=== PATIENT | male | born 1965 | race Caucasian/White ===

== ENCOUNTER → 2017-05-06 08:14 | Outpatient (CLI) | payer BC, SELFPAY ==
[2017-05-06 10:21] LABS: AST(SGOT) 23 U/L (15-37); Alanine Aminotransfer ALT/SGPT 46 U/L (16-61); Albumin, Serum 4.1 g/dL (3.2-5.0); Alkaline Phosphatase 87 U/L (45-117); Bilirubin, Direct 0.16 mg/dL (0.00-0.30); Cholesterol 116 mg/dL (200); Globulin 3.5 g/dL (2.2-4.2); High Density Lipoprotein 36 mg/dL; PSA,Total - Annual Screen 0.66 ng/mL (0.00-4.00); Protein, Total 7.6 g/dL (6.4-8.2); Triglycerides 137 mg/dL; Very Low Density Lipoprotein 27 mg/dL (5-40)
== END ==
PROVIDERS: Family Provider Physician Assistant; PCP Physician Assistant; Visit Provider Internal Medicine Cardiovascular Disease
DX: Z13.1 Encounter for screening for diabetes mellitus (principal); E78.5 Hyperlipidemia, unspecified; Z12.5 Encounter for screening for malignant neoplasm of prostate; Z79.899 Other long term (current) drug therapy
CPT/HCPCS: 36415; 80061; 80076; 84153; G0103

== ENCOUNTER → 2017-12-29 08:09 | Outpatient (CLI) | payer BC, SELFPAY ==
[2017-12-29 09:29] LABS: ALB/GLOB Ratio 1.1 RATIO (0.9-2.4); AST(SGOT) 34 U/L (15-37); Alanine Aminotransfer ALT/SGPT 61 U/L (16-61); Alkaline Phosphatase 91 U/L (45-117); Anion Gap 8 (5-15); BUN 13 mg/dL (7-18); BUN/Creat Ratio 12.6 RATIO (10-20); Calcium,Total 8.8 mg/dL (8.5-10.1); Chloride 105 mmol/L (98-107); Cholesterol 108 mg/dL (200); Creatinine, Serum 1.03 mg/dL (0.70-1.30); EST Glomerular Filtration Rate 80 mL/min (>60); Est Glom Filt Rate - Afr Amer 97 mL/min (>60); Globulin 3.8 g/dL (2.2-4.2); Glucose 104 mg/dL (74-106); High Density Lipoprotein 35 mg/dL; Protein, Total 7.8 g/dL (6.4-8.2); Sodium Level 139 mmol/L (136-145); Triglycerides 139 mg/dL; Very Low Density Lipoprotein 28 mg/dL (5-40)
== END ==
PROVIDERS: Family Provider Physician Assistant; PCP Physician Assistant; Referring Provider Internal Medicine Cardiovascular Disease; Visit Provider Internal Medicine Cardiovascular Disease
DX: Z13.1 Encounter for screening for diabetes mellitus (principal)
CPT/HCPCS: 36415; 80053; 80061; 84156

== ENCOUNTER → 2018-01-19 06:06 | Outpatient (CLI) | payer BC, SELFPAY ==
--- NOTE | 2018-01-19 10:54 | STRESSREP ---
Stress Test Report Exercise myocardial perfusion stress test. 52-year-old man with a history of previous coronary stenting in the right coronary artery. Stress protocol: Resting EKG demonstrates normal sinus rhythm with a rate of 66 bpm. His resting blood pressure 130/90 mmHg. He has an incomplete right bundle branch block. The patient exercised according to regular Joshua protocol for total duration of 9 minutes the maximum heart rate attained was 150 bpm which was 90% of maximum predicted heart rate the maximum workload was 10.1 metabolic equivalents. At rest there were no ST or T wave changes noted suggest ischemia at peak exercise nonspecific ST-T wave changes were noted we did not have any evidence of ischemia no clinical angina was noted the test was terminated due to leg fatigue. The resting blood pressure was 130/90 with a peak blood pressure 190/90 mmHg. Myocardial perfusion protocol. 14.4 mCi of technetium 99m sestamibi was injected at rest. The patient exercised according to regular Joshua protocol for total duration of 9 minutes at peak exercise 44.3 mCi of technetium 99m sestamibi was injected stress images were obtained stress and rest images were reconstructed and compared in the short axis vertical long horizontal long axis. Gated images were also obtained Perfusion SPECT analysis: Review of the stress images demonstrate normal uptake of tracer noted in all areas of myocardium. The resting images similarly demonstrate normal uptake of tracer noted in all areas of myocardium. No areas of reversibility are noted suggest ischemia no previous infarct is noted. Gated SPECT analysis: The gated ejection fraction is 66%. Conclusion: Normal exercise myocardial perfusion stress test at a high workload. Preserved ejection fraction.
== END ==
LOC: CVS 06:09
PROVIDERS: Family Provider Physician Assistant; PCP Physician Assistant; Referring Provider Internal Medicine Cardiovascular Disease; Visit Provider Internal Medicine Cardiovascular Disease
DX: I25.10 Atherosclerotic heart disease of native coronary artery without angina pectoris (principal); Z95.5 Presence of coronary angioplasty implant and graft
CPT/HCPCS: 78452; 93017; A9500; A4216

== ENCOUNTER → 2019-01-12 10:00 | Outpatient (CLI) | payer BC, SELFPAY ==
[2018-01-05 09:26] VITALS: BMI 27.8
[2019-01-12 11:42] LABS: AST(SGOT) 19 U/L (15-37); Alanine Aminotransfer ALT/SGPT 40 U/L (16-61); Albumin, Serum 4.3 g/dL (3.2-5.0); Alkaline Phosphatase 105 U/L (45-117); Bilirubin, Direct 0.14 mg/dL (0.00-0.30); Cholesterol 126 mg/dL (200); Globulin 3.7 g/dL (2.2-4.2); High Density Lipoprotein 40 mg/dL; Triglycerides 142 mg/dL; Very Low Density Lipoprotein 28 mg/dL (5-40)
[2019-01-12 11:44] LABS: Anion Gap 6 (5-15); BUN 14 mg/dL (7-18); BUN/Creat Ratio 13.6 RATIO (10-20); Calcium,Total 9.3 mg/dL (8.5-10.1); Chloride 106 mmol/L (98-107); Creatinine, Serum 1.03 mg/dL (0.70-1.30); EST Glomerular Filtration Rate 79 mL/min (>60); Est Glom Filt Rate - Afr Amer 96 mL/min (>60); Glucose 102 mg/dL (74-106); PSA,Total - Annual Screen 0.72 ng/mL (0.00-4.00); Potassium 4.2 mmol/L (3.5-5.1); Sodium Level 141 mmol/L (136-145)
== END ==
PROVIDERS: Family Provider Physician Assistant; PCP Physician Assistant; Referring Provider Internal Medicine Cardiovascular Disease; Visit Provider Internal Medicine Cardiovascular Disease
DX: I10 Essential (primary) hypertension (principal); Z12.5 Encounter for screening for malignant neoplasm of prostate; E78.00 Pure hypercholesterolemia, unspecified; F17.200 Nicotine dependence, unspecified, uncomplicated; Z95.5 Presence of coronary angioplasty implant and graft; I73.9 Peripheral vascular disease, unspecified; E78.5 Hyperlipidemia, unspecified; I25.10 Atherosclerotic heart disease of native coronary artery without angina pectoris; I45.2 Bifascicular block
CPT/HCPCS: 36415; 80048; 80061; 80076; 84153; G0103

== ENCOUNTER → 2020-01-10 08:04 | Outpatient (CLI) | payer BC, SELFPAY ==
[2019-01-18 10:17] VITALS: BMI 27.6
[2020-01-10 10:02] LABS: ALB/GLOB Ratio 0.9 RATIO (0.9-2.4); AST(SGOT) 14 U/L (15-37); Alanine Aminotransfer ALT/SGPT 32 U/L (16-61); Albumin, Serum 3.8 g/dL (3.2-5.0); Alkaline Phosphatase 93 U/L (45-117); Anion Gap 2 (5-15); BUN 13 mg/dL (7-18); BUN/Creat Ratio 12.5 RATIO (10-20); Bilirubin, Direct 0.26 mg/dL (0.00-0.30); Calcium,Total 9.4 mg/dL (8.5-10.1); Chloride 106 mmol/L (98-107); Cholesterol 111 mg/dL (200); Creatinine, Serum 1.04 mg/dL (0.70-1.30); EST Glomerular Filtration Rate 78 mL/min (>60); Est Glom Filt Rate - Afr Amer 95 mL/min (>60); Globulin 4.2 g/dL (2.2-4.2); Glucose 104 mg/dL (74-106); High Density Lipoprotein 47 mg/dL; PSA,Total - Annual Screen 0.66 ng/mL (0.00-4.00); Potassium 4.2 mmol/L (3.5-5.1); Sodium Level 138 mmol/L (136-145); Triglycerides 63 mg/dL; Very Low Density Lipoprotein 13 mg/dL (5-40)
== END ==
LOC: LAB 08:06
PROVIDERS: PCP Physician Assistant; Referring Provider Physician Assistant; Visit Provider Physician Assistant
DX: E78.5 Hyperlipidemia, unspecified (principal); Z12.5 Encounter for screening for malignant neoplasm of prostate
CPT/HCPCS: 36415; 80053; 80061; 82248; 84153; G0103

== ENCOUNTER → 2021-10-12 | Outpatient (CLI) | payer BC, SELFPAY ==
--- NOTE | 2021-10-12 14:04 | CT_ITS ---
STUDY: LOW DOSE CT LUNG CANCER SCREENING REASON FOR EXAM: Male, 56 years old. Lung cancer screening -- and gt;30 pk yr hx; asymptomatic; current smoker RADIATION DOSAGE (If Supplied By Facility): CTDIvol = ( 2.39 ) mGy, DLP = ( 85.18 ) mGycm TECHNIQUE: No contrast was administered. Low dose technique was utilized (average mAS-38 and kVp 120). 1.25 mm axial source images with a slice interval of 1.25-mm were reconstructed in lung windows. 2.5 mm axial source images with a slice interval of 2.5-mm were reconstructed in lung windows. 5.0 mm axial source images with a slice interval of 5.0-mm were reconstructed in soft tissue windows. COMPARISON: Chest x-ray obtained on 03/27/2016. NODULES: Total lung nodules (excluding granulomas): 0 Emphysema: Subtle peripheral emphysematous bulla visualized in the upper lung abraham bilaterally. Prominence of the bronchovascular and interstitial lung markings is visualized. No evidence of focal lung infiltrates or consolidations. Endobronchial lesion: No evidence of endobronchial lesions is seen. Bronchial wall thickening is seen, no evidence of bronchiectatic changes is seen. Aorta: Mild calcification visualized in the aortic arch, no evidence of aneurysmal dilatation or arterial dissection is seen. CORONARY ARTERIES: Coronary artery calcification Prominent atherosclerotic calcifications visualized in the left main coronary artery. Coronary artery calcifications visualized involving more than one third and less than two thirds of the left anterior descending. Calcifications visualized involving more than one third and less than two thirds of the left circumflex coronary artery.. Calcifications with suggestion of a stent visualized in the right coronary artery. Heart: Heart is unremarkable in size, no evidence of pericardial effusion. Pulmonary artery: Pulmonary arteries demonstrate unremarkable contours in size. Mediastinal nodes: Scattered lymph nodes, largest of which are precarinal lymph nodes measuring 1.7 x 1.2 cm seen on axial series 2 image 121. Other chest and abdominal findings: No evidence of pleural effusion or pneumothorax. CT/Low Dose CT Lung Screening IMPRESSION: No evidence of parenchymal lung nodules. IMPORTANT NOTES FOR USE: ACR Lung-RADS Version 1.1 Assessment Categories Release Date: 2018 Category: Coded 0-4 bases on nodule(s) with highest degree of suspicion. Negative screen is defined as categories 1 and 2; a positive screen is defined as categories 3 and 4. Category 3 and 4A nodules that are unchanged on interval CT should be coded as category 2, and individuals returned to screening in 12 months. Category 4X: Category 3 or 4 nodules with additional imaging findings that increase the suspicion of lung cancer, such as spiculation, GGN that doubles in size in 1 year, enlarged lymph notes, etc. Category Modifiers: S (significant finding unrelated to lung cancer) Electronically Signed: Cyrus Alejandra MD at 14:39 EDT Reading Location ID and State: [facility] / [place] Tel , Service support ,
== END | disposition home or self-care (01) ==
PROVIDERS: PCP Physician Assistant; Referring Provider Nurse Practitioner Family; Visit Provider Nurse Practitioner Family
DX: Z12.2 Encounter for screening for malignant neoplasm of respiratory organs (principal); Z87.891 Personal history of nicotine dependence
CPT/HCPCS: 71271

== ENCOUNTER → 2023-04-11 | Outpatient (CLI) | payer BC, SELFPAY ==
--- NOTE | 2023-04-11 12:50 | CT_ITS ---
STUDY: LOW DOSE CT LUNG CANCER SCREENING REASON FOR EXAM: Male, 58 years old. Lung cancer screening -- and gt;20 pk yr hx;current smoker;asymptomatic RADIATION DOSAGE (If Supplied By Facility): CTDIvol = ( 4.02 ) mGy, DLP = ( 156.02 ) mGycm TECHNIQUE: No contrast was administered. Low dose technique was utilized (average mAS-38 and kVp 120). 1.25 mm axial source images with a slice interval of 1.25-mm were reconstructed in lung windows. 2.5 mm axial source images with a slice interval of 2.5-mm were reconstructed in lung windows. 5.0 mm axial source images with a slice interval of 5.0-mm were reconstructed in soft tissue windows. COMPARISON: Comparison is made with prior study dated October 12, 2021. NODULES: No suspicious nodules are seen. Emphysema: Hyperinflation. Emphysematous changes with bullous formation more prominent in the upper lobes. Endobronchial lesion: None Aorta: Mild atherosclerotic calcification of the aortic arch. The root of the ascending thoracic aorta measures upper limits of normal. CORONARY ARTERIES: Coronary artery calcification is seen. Heart: Unremarkable Pulmonary artery: Unremarkable Mediastinal nodes: Small benign-appearing mediastinal lymph nodes. Other chest and abdominal findings: CT/Low Dose CT Lung Screening IMPRESSION: Lung-RADS category 2 - Continue annual screening with LDCT in 12 months. IMPORTANT NOTES FOR USE: ACR Lung-RADS Version 1.1 Assessment Categories Release Date: 2018 Category: Coded 0-4 bases on nodule(s) with highest degree of suspicion. Negative screen is defined as categories 1 and 2; a positive screen is defined as categories 3 and 4. Category 3 and 4A nodules that are unchanged on interval CT should be coded as category 2, and individuals returned to screening in 12 months. Category 4X: Category 3 or 4 nodules with additional imaging findings that increase the suspicion of lung cancer, such as spiculation, GGN that doubles in size in 1 year, enlarged lymph notes, etc. Category Modifiers: S (significant finding unrelated to lung cancer) Electronically Signed: Ej Bajwa MD at 13:33 EST ,
== END | disposition home or self-care (01) ==
LOC: CT 12:48
PROVIDERS: PCP Physician Assistant; Referring Provider Nurse Practitioner Family; Visit Provider Nurse Practitioner Family
DX: Z12.2 Encounter for screening for malignant neoplasm of respiratory organs (principal); Z87.891 Personal history of nicotine dependence
CPT/HCPCS: 71271

== ENCOUNTER → 2023-04-21 | Outpatient (CLI) | payer BC, SELFPAY ==
--- OUTSIDE RECORDS SUMMARY | 2023-04-21 06:12 | XMS RPT_ITS | CCD ---
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 09-27-2013 End: 09-27-2013 Patient encounter procedure Dylan Mendozaer PA-C Work Phone: [facility] Patient encounter status [facility]japati [facility].; [facility], [facility]. Patient encounter status Steve Mercado [facility].; [facility]. Patient encounter status Cassandra cerda SR COMMUNITY MANAGER [facility].; [facility] Patient encounter status Kathy Nayak SR COMMUNITY MANAGER [facility].; [facility] Preprocedural examin ation done Dylan Bangura PA-C Work Phone: [facility]; [facility] Procedures Date Procedure Procedure Detail Performing Clinician Start: 02-10-2023 End: 02-10-2023 Depression screening Dylan Garcia Work Phone: Start: 02-10-2023 End: 02-10-2023 Scr dep neg, no plan reqd Dylan travis PA-C Work Phone: Start: 01-27-2023 End: 01-27-2023 Lab findings surveillance Steve REDD Plan of Treatment Date Care Activity Detail Author Start: 08-11-2023 Patient encounter procedure Medical; EXTENDED RTN - 6 mo rtn [facility] Start: 11-Aug-2023 8:00 LORI Bangura [facility]ointment [facility] Start: 09-28-2020 Radiologic exam ches t 2 views CHEST XRAY, PA & LATERAL ([id number]) Start: 28-Sep-2020 Intent [facility].; [facility] Start: 05-18-2017 End: 05-18-2017 Appointment Appointment [facility] Work Phone: Start: 05-08-2017 End: 11-11-2016 *Hepatic Function Panel *Hepatic Function Panel [facility] Work Phone: Start: 05-08-2017 End: 11-11-2016 Lipid 1996 panel *Lipid Profile CC PCP [facility] Work Phone: Start: 05-08-2017 End: 11-11-2016 *Hepatic Function Panel *Hepatic Function Panel [facility] Work Phone: Start: 05-08-2017 End: 11-11-2016 Lipid panel [AGGREGATE] *Lipid Profile CC PCP [facility] Work Phone: Start: 11-17-2016 End: 11-17-2016 Appointment Appointment [facility] Work Phone: Start: 11-17-2016 End: 11-17-2016 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 [facility] Work Phone: Start: 11-17-2016 End: 11-17-2016 Follow Up Appt 6 months Follow Up Appt 6 months [facility] Work Phone: Start: 11-17-2016 End: 11-17-2016 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 [facility] Work Phone: Start: 11-17-2016 End: 11-17-2016 Follow Up Appt 6 months Follow Up Appt 6 months [facility] Work Phone: Start: 10-05-2016 End: 11-07-2016 *Hepatic Function Panel *Hepatic Function Panel [facility] Work Phone: Start: 10-05-2016 End: 11-07-2016 Lipid 1996 panel *Lipid Profile CC PCP [facility] Work Phone: Start: 10-05-2016 End: 11-07-2016 *Hepatic Function Panel *Hepatic Function Panel [facility] Work Phone: Start: 10-05-2016 End: 11-07-2016 Lipid panel [AGGREGATE] *Lipid Profile CC PCP [facility] Work Phone: Start: 04-14-2016 End: 04-14-2016 Follow Up Appt 6 months Follow Up Appt 6 months [facility] Work Phone: Start: 04-14-2016 End: 04-14-2016 MMM MMM [facility] Work Phone: Start: 04-14-2016 End: 04-14-2016 Follow Up Appt 6 months Follow Up Appt 6 months [facility] Work Phone: Start: 04-14-2016 End: 04-14-2016 MMM MMM [facility] Work Phone: Start: 03-30-2016 End: 04-07-2016 *Hepatic Function Panel *Hepatic Function Panel [facility] Work Phone: Start: 03-30-2016 End: 04-07-2016 Lipid 1996 panel *Lipid Profile CC PCP [facility] Work Phone: Start: 03-30-2016 End: 04-07-2016 *Hepatic Function Panel *Hepatic Function Panel [facility] Work Phone: Start: 03-30-2016 End: 04-07-2016 Lipid panel [AGGREGATE] *Lipid Profile CC PCP [facility] Work Phone: Start: 11-24-2015 End: 11-24-2015 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 [facility] Work Phone: Start: 11-24-2015 End: 11-24-2015 Follow Up Appt 6 months Follow Up Appt 6 months [facility] Work Phone: Start: 11-24-2015 End: 11-24-2015 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 [facility] Work Phone: Start: 11-24-2015 End: 11-24-2015 Follow Up Appt 6 months Follow Up Appt 6 months [facility] Work Phone: Start: 11-13-2015 End: 11-18-2015 *Hepatic Function Panel *Hepatic Function Panel [facility] Work Phone: Start: 11-13-2015 End: 11-18-2015 Lipid 1996 panel *Lipid Profile CC PCP [facility] Work Phone: Start: 11-13-2015 End: 11-18-2015 *Hepatic Function Panel *Hepatic Function Panel [facility] Work Phone: Start: 11-13-2015 End: 11-18-2015 Lipid panel [AGGREGATE] *Lipid Profile CC PCP [facility] Work Phone: Start: 04-28-2015 End: 05-14-2015 *Hepatic Function Panel *Hepatic Function Panel [facility] Work Phone: Start: 04-28-2015 End: 04-28-2015 Follow Up Appt 6 months Follow Up Appt 6 months [facility] Work Phone: Start: 04-28-2015 End: 05-14-2015 Lipid 1996 panel *Lipid Profile CC PCP [facility] Work Phone: Start: 04-28-2015 End: 04-28-2015 MMM MMM [facility] Work Phone: Start: 04-28-2015 End: 05-14-2015 *Hepatic Function Panel *Hepatic Function Panel [facility] Work Phone: Start: 04-28-2015 End: 04-28-2015 Follow Up Appt 6 months Follow Up Appt 6 months [facility] Work Phone: Start: 04-28-2015 End: 05-14-2015 Lipid panel [AGGREGATE] *Lipid Profile CC PCP [facility] Work Phone: Start: 04-28-2015 End: 04-28-2015 MMM MMM [facility] Work Phone: Start: 04-13-2015 End: 05-11-2015 *Hepatic Function Panel *Hepatic Function Panel [facility] Work Phone: Start: 04-13-2015 End: 05-11-2015 Lipid 1996 panel *Lipid Profile CC PCP [facility] Work Phone: Start: 04-13-2015 End: 05-11-2015 *Hepatic Function Panel *Hepatic Function Panel [facility] Work Phone: Start: 04-13-2015 End: 05-11-2015 Lipid panel [AGGREGATE] *Lipid Profile CC PCP [facility] Work Phone: Start: 10-13-2014 End: 10-13-2014 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 [facility] Work Phone: Start: 10-13-2014 End: 10-13-2014 Follow Up Appt 6 months Follow Up Appt 6 months [facility] Work Phone: Start: 10-13-2014 End: 11-17-2015 Follow Up Appt Other Follow Up Appt Other [facility] Work Phone: Start: 10-13-2014 End: 10-13-2014 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 [facility] Work Phone: Start: 10-13-2014 End: 10-13-2014 Follow Up Appt 6 months Follow Up Appt 6 months [facility] Work Phone: Start: 10-13-2014 End: 11-17-2015 Follow Up Appt Other Follow Up Appt Other [facility] Work Phone: Start: 04-16-2014 End: 04-16-2014 Vascular Surgery Vascular Surgery Marcelo Garza MD, [address] [facility] [address], [place], [address] [facility] Work Phone: Start: 04-16-2014 End: 04-16-2014 Vascular Surgery Vascular Surgery Marcelo Garza MD, [address] [facility] [address], [place], [address] [facility] Work Phone: Start: 04-15-2014 End: 04-15-2014 *BMP *BMP [facility] Work Phone: Start: 04-15-2014 End: 10-10-2014 *Hepatic Function Panel *Hepatic Function Panel [facility] Work Phone: Start: 04-15-2014 End: 04-15-2014 Follow Up Appt 6 months Follow Up Appt 6 months [facility] Work Phone: Start: 04-15-2014 End: 04-15-2014 Follow Up Appt Other Follow Up Appt Other [facility] Work Phone: Start: 04-15-2014 End: 10-10-2014 Lipid 1996 panel *Lipid Profile CC PCP [facility] Work Phone: Start: 04-15-2014 End: 04-15-2014 Magnesium mass conc *Magnesium [facility] Work Phone: Start: 04-15-2014 End: 04-15-2014 MMM MMM [facility] Work Phone: Start: 04-15-2014 End: 04-15-2014 *BMP *BMP [facility] Work Phone: Start: 04-15-2014 End: 10-10-2014 *Hepatic Function Panel *Hepatic Function Panel [facility] Work Phone: Start: 04-15-2014 End: 04-15-2014 Follow Up Appt 6 months Follow Up Appt 6 months [facility] Work Phone: Start: 04-15-2014 End: 04-15-2014 Follow Up Appt Other Follow Up Appt Other [facility] Work Phone: Start: 04-15-2014 End: 10-10-2014 Lipid panel [AGGREGATE] *Lipid Profile CC PCP [facility] Work Phone: Start: 04-15-2014 End: 04-15-2014 Magnesium *Magnesium [facility] Work Phone: Start: 04-15-2014 End: 04-15-2014 MMM MMM [facility] Work Phone: Start: 01-15-2014 End: 01-15-2014 Cardiac Rehab Cardiac Rehab [facility] Work Phone: Start: 01-15-2014 End: 01-15-2014 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 [facility] Work Phone: Start: 01-15-2014 End: 01-15-2014 Ecg routine ecg w/least 12 lds w/i&r EKG (In office) [facility] Work Phone: Start: 01-15-2014 End: 01-15-2014 Follow Up Appt 3 months Follow Up Appt 3 months [facility] Work Phone: Start: 01-15-2014 End: 01-15-2014 Cardiac Rehab Cardiac Rehab [facility] Work Phone: Start: 01-15-2014 End: 01-15-2014 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 [facility] Work Phone: Start: 01-15-2014 End: 01-15-2014 Electrocardiogram, complete EKG (In office) [facility] Work Phone: Start: 01-15-2014 End: 01-15-2014 Follow Up Appt 3 months Follow Up Appt 3 months [facility] Work Phone: Patient Education [facility] Work Phone: Immunizations Immunization Date Immunization Notes Care Provider Wisam aparicio 02-08-2019 influenza, injectabl e, quadrivalent, contains preservative Dylan Bangura PA-C Work Phone: [email or web address]; [employer] 09-29-2014 tetanus toxoid, redu kyle diphtheria toxoid, and acellular pertussis vaccine, adsorbed Dylan Bangura PA-C Work Phone: [employer]; [employer] Payers Date Payer Category Payer Unknown [id number] 1965 Unknown [id number] 1965 Unknown [id number] 1965 Unknown [id number] Unknown [id number] Unknown ANTHEM Social History Date Type Detail Facility Alcohol Use: Alcohol Use: ; O ccasional alcohol use. [employer]. Caffeine Use Caffeine Use [employer]. Marital status: Marital status: ; . [employer]. Tobacco Use: Tobacco Use: ; C urrent every day smoker. [employer]. Male [employer]. Work Phone: Occasional alcohol use [facility]. Work Phone: Occasional tobacco smoker [facility].; [facility]. Work Phone: Smokes tobacco daily [facility].; [facility]. Work Phone: [facility]-smoker [facility].; [facility]. Work Phone: [facility].; [facility]. Work Phone: Summary Purpose Family History Diabetes Mellitus Type II Status:Active Commen ts:grandfather No Known Family History Onset:27-Sep-2013 Status:Inactive Diabetes Mellitus Type II Status:Active Commen ts:grandfather No Known Family History Onset:27-Sep-2013 Status:Inactive Diabetes Mellitus Type II Status:Active Commen ts:grandfather No Known Family History Onset:27-Sep-2013 Status:Inactive Diabetes Mellitus Type II Status:Active Commen ts:grandfather No Known Family History Onset:27-Sep-2013 Status:Inactive Diabetes Mellitus Type II Status:Active Commen ts:grandfather No Known Family History Onset:27-Sep-2013 Status:Inactive Advance Directives No Advanced Directives Records FoundNo Advanced Directives Records FoundNo Advanced Directives Records Found Additional Source Comments (unrecognized sect ion and content) No Status Records FoundNo Status Records FoundNo Status Records Found INFORMATION SOURCE (unrecogn ized section and content) DATE CREATED AUTHOR AUTHOR'S ORGANIZ ATION 11/12/2020 [facility] DATE CREATED AUTHOR AUTHOR'S ORGANIZ ATION 01/30/2023 [facility] FOR RECORDS PERTAINING TO PATIENTS WHO ARE OR HAVE BEEN ENROLLED IN A CHEMICAL DEPENDENCY/SUBSTANCEABUSE PROGRAM, SOME INFORMATION MAY BE OMITTED. This clinical summary was aggregated from multiple sources. Caution should be exercised in using it in the provision of clinical care. This summary normalizes information from multiple sources, and as a consequence, information in this document may materially change the coding, format and clinical context of patient data. In addition, data may be omitted in some cases. CLINICAL DECISIONS SHOULD BE BASED ON THE PRIMARY CLINICAL RECORDS. [facility]. provides no warranty or guarantee of the accuracy or completeness of information in this document.
--- NOTE | 2023-04-21 12:48 | STRESSREP_ITS ---
Stress Test Report Exercise myocardial perfusion stress test. 58-year-old man with a history of chest pain Stress protocol: Resting EKG demonstrates normal sinus rhythm with a rate of 66 bpm resting blood pressure is 140/96 mmHg. The patient exercised according to the regular Joshua protocol for a total duration of 9 minutes attaining a maximum heart rate of 146 bpm which was 91% of maximum predicted heart rate; the maximum workload was 10.1 metabolic equivalents. At rest there were no ST or T wave changes noted to suggest ischemia and at peak exercise upsloping ST changes only were noted which did not meet the criteria for ischemia. No clinical angina was noted the test was terminated due to the target heart rate being achieved/fatigue. The peak b lood pressure was 184/80 mmHg. Rate-pressure product was 26,800. Myocardial perfusion protocol. 14.3 mCi of technetium 99m sestamibi was injected at rest. The patient exercised according to regular Joshua protocol for total duration of 9 minutes and at peak exercise 44.1 mCi of technetium 99m sestamibi was injected stress images were obtained stress and rest images were reconstructed in comparing the short axis vertical long and horizontal long axis. Gated images were also obtained. Perfusion SPECT analysis: Review of the stress images demonstrate normal uptake of tracer noted in all areas of the myocardium. The resting images similarly demonstrate normal uptake of tracer noted in all areas of the myocardium. No areas of reversibility are noted to suggest ischemia no previous infarct was noted. Gated SPECT analysis: The gated ejection fraction is 73%. Conclusion: Normal exercise myocardial perfusion stress test at a high workload Preserved ejection fraction.
== END | disposition home or self-care (01) ==
LOC: CVS 06:08
PROVIDERS: PCP Physician Assistant; Referring Provider Physician Assistant Medical; Visit Provider Physician Assistant Medical
DX: I25.10 Atherosclerotic heart disease of native coronary artery without angina pectoris (principal); Z95.5 Presence of coronary angioplasty implant and graft
CPT/HCPCS: 78452; 93017; A9500; A4216

== ENCOUNTER → 2024-04-23 | Outpatient (CLI) | payer OTHER, SELFPAY ==
--- NOTE | 2024-04-23 14:14 | CT_ITS ---
PROCEDURE: LOW DOSE CT LUNG SCREENING REASON FOR EXAM: Current smoker. Patient has smoked 1 pack per day for 49 years. Emphysema. TECHNIQUE: Low Dose CT Lung Screening without contrast COMPARISON: Comparison is made with prior study dated April 11, 2023. FINDINGS: PULMONARY NODULES: (Only nodules >6mm are reported) Nodules described below are on series 1 unless otherwise specified. Pulmonary Nodules: No concerning pulmonary nodules. Hardware:None Lymph Nodes:No mediastinal hilar or axillary lymphadenopathy. Heart and Vasculature:Normal heart size. No pericardial effusion.Thoracic aorta and pulmonary arteries have normal contours; noncontrast technique limits evaluation. Calcific plaques of the aortic arch. The root of the ascending thoracic aorta measures 42 mm. This is dilated. Coronary Artery Calcifications: Present Lungs and Airways: Mild emphysematous changes are present. Pleura:No pleural effusion. No pneumothorax. Upper Abdomen:Visualized portions of the upper abdominal viscera are unremarkable. Bones:Bone windows are unremarkable. CT/Low Dose CT Lung Screening IMPRESSION: 1. BASED ON THE ACR LUNG RADS FOR THE MOST SUSPICIOUS NODULE (IF ANY) DESCRIBE D IN THIS REPORT, THE OVERALL LUNG RADS SCORE IS 2.2 - BENIGN (BASED ON IMAGING FEATURES OR INDOLENT BEHAVIOR). RECOMMEND 12-MON TH SCREENING LDCT.. 2. SMOKING CESSATION COUNSELING IS RECOMMENDED IF THE PATIENT IS STILL SMOKING . 3. OTHER SIGNIFICANT FINDINGSNone. One or more dose reduction techniques were used (e.g., Automated exposure contr ol, adjustment of the mA and/or kV according to patient size, use of iterative reconstruction technique). The following information is provided for reference:Lung-RADS 2021 Assessment C ategories. Additional information involving Lung-RADS is available at www.acr.org. 0-INCOMPLETE 1-NEGATIVE:No nodules or definitely benign nodules. Complete, central, popcorn , or centric ring calcifications OR fat containing 2-BENIGN APPEARANCE (based on imaging features or indolent behavior). Juxtaple ural nodule: < 10mm AND solid; smooth margins; oval, entiform, or triangular shape Solid nodule: <6mm at baseline or new< 4mm Part solid Nodule: < 6mm total mean diameter at baseline Nonsolid nodule:(GGN) < 30mm OR >=30mm stable or slowly growing Airway nodule, subsegmental at baseline, new, or stable Category 3 nodule stabl e or decreased in size at 6-month follow-up CT or Category 3 or 4A nodules that resolve on follow-up OR category 4B findings prov en to be benign following diagnotic work up. 3 - Probably Benign (Based on imaging features or behavior) Solid Nodule: >= 6 to <8mm at baseline OR new 4 to <6mm Part-solid nodule: >= 6mm toal mean diam. with solid component <6mm at baseline OR new < 6mm total mean diam. Non-solid nodule: GGN >= 30mm at baseline or new Atypical pulmonary cyst: Growing cystic component (mean diam.) of thick-walled cyst Category 4A nodule stable or decreased in size at 3-month follow-up CT (excl.ai rway). 4A - Suspicious Solid nodule: >=8 to < 15mm at baseline OR growing < 8mm OR new 6 to < 8mm Part solid nodule: >= 6mm total mean diam. w/ solid component >=6mm to < 8mm at baseline OR new or growing < 4mm solid component Airway nodule, segmental or more proximal at baseline or new Atypical pulmonary cyst: Thick-walled OR multilocular at baseline OR becomes mu ltilocular 4B - Very Suspicious Airway nodule, segmental or more proximal, and stable or growing Solid nodule: >= 15mm at baseline OR new or growing >= 8mm Part solid nodule: Solid component >= 8mm OR new or growing >= 4mm solid compon ent Atypical pulmonary cyst: Thick-walled with growing wall thickness/nodularity OR Growing multilocular (mean diam.) OR Multilocular with increased loculation or new/increased opacity Slow-growing solid or part solid nodule w/ growth over multiple screening exams 4X - Very Suspicious Category 3 or 4 nodules with additional features that increase the suspicion fo r lung cancer. S - Clinically Significant or potentially significant findings (non-lung cancer ) 3. OTHER SIGNIFICANT FINDINGSNone. One or more dose reduction techniques were used (e.g., Automated exposure contr ol, adjustment of the mA and/or kV according to patient size, use of iterative reconstruction technique). The following information is provided for reference:Lung-RADS 2021 Assessment C ategories. Additional information involving Lung-RADS is available at www.acr.org. 0-INCOMPLETE 1-NEGATIVE:No nodules or definitely benign nodules. Complete, central, popcorn , or centric ring calcifications OR fat containing 2-BENIGN APPEARANCE (based on imaging features or indolent behavior). Juxtaple ural nodule: < 10mm AND solid; smooth margins; oval, entiform, or triangular shape Solid nodule: <6mm at baseline or new< 4mm Part solid Nodule: < 6mm total mean diameter at baseline Nonsolid nodule:(GGN) < 30mm OR >=30mm stable or slowly growing Airway nodule, subsegmental at baseline, new, or stable Category 3 nodule stabl e or decreased in size at 6-month follow-up CT or Category 3 or 4A nodules that resolve on follow-up OR category 4B findings prov en to be benign following diagnotic work up. 3 - Probably Benign (Based on imaging features or behavior) Solid Nodule: >= 6 to <8mm at baseline OR new 4 to <6mm Part-solid nodule: >= 6mm toal mean diam. with solid component <6mm at baseline OR new < 6mm total mean diam. Non-solid nodule: GGN >= 30mm at baseline or new Atypical pulmonary cyst: Growing cystic component (mean diam.) of thick-walled cyst Category 4A nodule stable or decreased in size at 3-month follow-up CT (excl.ai rway). 4A - Suspicious Solid nodule: >=8 to < 15mm at baseline OR growing < 8mm OR new 6 to < 8mm Part solid nodule: >= 6mm total mean diam. w/ solid component >=6mm to < 8mm at baseline OR new or growing < 4mm solid component Airway nodule, segmental or more proximal at baseline or new Atypical pulmonary cyst: Thick-walled OR multilocular at baseline OR becomes mu ltilocular 4B - Very Suspicious Airway nodule, segmental or more proximal, and stable or growing Solid nodule: >= 15mm at baseline OR new or growing >= 8mm Part solid nodule: Solid component >= 8mm OR new or growing >= 4mm solid compon ent Atypical pulmonary cyst: Thick-walled with growing wall thickness/nodularity OR Growing multilocular (mean diam.) OR Multilocular with increased loculation or new/increased opacity Slow-growing solid or part solid nodule w/ growth over multiple screening exams 4X - Very Suspicious Category 3 or 4 nodules with additional features that increase the suspicion fo r lung cancer. S - Clinically Significant or potentially significant findings (non-lung cancer ) Reading Location: [facility]
== END | disposition home or self-care (01) ==
PROVIDERS: PCP Physician Assistant; Referring Provider Nurse Practitioner Family; Visit Provider Nurse Practitioner Family
DX: Z12.2 Encounter for screening for malignant neoplasm of respiratory organs (principal); Z87.891 Personal history of nicotine dependence
CPT/HCPCS: 71271

== ENCOUNTER → 2024-08-16 | Outpatient (CLI) | payer OTHER, SELFPAY ==
--- NOTE | 2024-08-16 14:35 | CT_ITS ---
EXAM: CT Abdomen and Pelvis Without Intravenous Contrast CLINICAL INDICATION: CHECK HERNIAS TECHNIQUE: Axial computed tomography images of the abdomen and pelvis without intravenous contrast. This CT exam was performed using one or more of the following dose reduction techniques: automated exposure control, adjustment of the mA and/or kV according to patient size, and/or use of iterative reconstruction technique. COMPARISON: No relevant prior studies available. FINDINGS: LUNG BASES: Unremarkable. No mass. No consolidation. MEDIASTINUM: Small esophageal hiatal hernia. ABDOMEN: LIVER: Fatty infiltration of the liver. GALLBLADDER AND BILE DUCTS: Unremarkable. No calcified stones. No ductal dilation. PANCREAS: Unremarkable. No ductal dilation. SPLEEN: Unremarkable. No splenomegaly. ADRENALS: Unremarkable. No mass. KIDNEYS AND URETERS: Bilateral renal pelvic calculi, largest measuring up to 4 mm without obstruction. STOMACH AND BOWEL: Colonic diverticulosis without acute diverticulitis. No obstruction. PELVIS: APPENDIX: No findings to suggest acute appendicitis. BLADDER: Unremarkable. No stones. REPRODUCTIVE: Unremarkable as visualized. ABDOMEN and PELVIS: INTRAPERITONEAL SPACE: Unremarkable. No free air. No significant fluid collection. BONES/JOINTS: No acute fracture. No dislocation. SOFT TISSUES: Inguinal hernias, bilaterally. Umbilical hernia containing fat. VASCULATURE: Scattered calcified atherosclerotic disease of aorta. No abdominal aortic aneurysm. LYMPH NODES: Unremarkable. No enlarged lymph nodes. CT/Abdomen/Pelvis without Cont IMPRESSION: 1. Small esophageal hiatal hernia. 2. Bilateral renal pelvic calculi, largest measuring up to 4 mm without obstru ction. 3. Inguinal hernias, bilaterally. 4. Umbilical hernia containing fat. 5. Colonic diverticulosis without acute diverticulitis. Reading Location: [id number]
== END | disposition home or self-care (01) ==
PROVIDERS: PCP Physician Assistant; Referring Provider Surgery; Visit Provider Surgery
DX: K50.90 Crohn's disease, unspecified, without complications (principal); K42.9 Umbilical hernia without obstruction or gangrene
CPT/HCPCS: 74176

== ENCOUNTER 2024-09-12 08:53 | Day surgery (SDC) | payer OTHER, SELFPAY ==
--- NOTE | 2024-08-29 15:47 | PAT.ANESEVAL ---
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 When Was Last Pacemaker Check QUESTION #4 FULL TEXT: You/Your Family Experience fever (hyperthermia) with Anesthesia Last Oral Intake Last Oral intake: Last Oral Intake NPO since Meds taken in AM with sips of water? Meds patient instructed to take am of surgery PONV PONV - art objects repairer: PONV - art objects repairer Female No 08/29/24 14:31 HX of Motion Sickness No 08/29/24 14:31 HX of N/V After Surgery No 08/29/24 14:31 Non-Smoker No 08/29/24 14:31 Duration of Surgery greater No 08/29/24 14:31 than 60 minutes Number of Risk Factors PONV Score Height & Weight Height & Weight: Anesthesia: Height & Weight Height 6 ft 08/16/24 13:50 Respiratory Assessment Respiratory Assessment - art objects repairer: Respiratory Tract Infection Hx - art objects repairer Hx Respiratory Tract Infection No 08/29/24 14:31 STOP Sleep Apnea STOP Sleep Apnea - art objects repairer: STOP Sleep Apnea - art objects repairer Hx Hypertension Yes: on meds 08/29/24 14:31 Hx Sleep Apnea No 08/29/24 14:31 CPAP No 12/29/13 10:19 BIPAP No 12/29/13 10:19 Do you snore loudly (louder No 08/29/24 14:31 than talking or can be heard Do you often feel tired/ No 08/29/24 14:31 fatigued/ sleepy during daytime? Has anyone observed you stop No 08/29/24 14:31 breathing during sleep? STOP Results Negative 08/29/24 14:31 QUESTION #5 FULL TEXT : Do you snore loudly (louder than talking or can be heard through closed doors)? 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 Specify any problems Hx of Preganancy in last 3 N/A 08/29/24 14:31 Months Nurse Filling Out Transfusion JZOLLDEANN 08/29/24 14:31 & Questions: Date: 08/29/24 08/29/24 14:31 Time: 14:34 08/29/24 14:31 Patient unable to answer at this time (ie. 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 Home Medications ?Medication ?Instructions ?Recorded ?Last Taken ?Type ascorbic acid (vitamin C) 500 mg 500 mg PO DAILY@0800 12/29/13 03/27/16 History tablet multivitamin with folic acid 400 1 tab PO DAILY 12/29/13 03/27/16 History mcg tablet hydrocodone 5 mg-acetaminophen 300 1 tab PO Q6H PRN pain 05/18/17 Unknown History mg tablet (Vicodin) aspirin 81 mg chewable tablet 162 mg PO BID 03/17/23 Unknown History nitroglycerin 0.4 mg sublingual 0.4 mg sublingual Q5M PRN chest 03/17/23 Unknown Rx tablet (Nitrostat) pain #30 tabs cyclobenzaprine 10 mg tablet 10 mg PO HS PRN pain 02/16/24 Unknown History atorvastatin 40 mg tablet 40 mg PO Q OTHER DAY #90 tabs 06/07/24 Unknown Rx metoprolol tartrate 25 mg tablet See Rx Instructions .Route 06/07/24 Unknown Rx .COMPLEX #90 tabs sildenafil 50 mg tablet 50 mg PO DAILY PRN erectile 08/29/24 Unknown History dysfunction Allergy/AdvReac Type Severity Reaction Status Date / Time tramadol AdvReac Other Verified 08/29/24 14:18 Family History Unknown No problems noted. Sister Cancer Breast Cancer; Surgical History (Updated 08/29/24 @ 14:31 by Dalia Dempsey) Hx of colonoscopy Hx of heart artery stent History of repair of rotator cuff H/O right coronary artery stent placement (12/30/13) Social History (Updated 08/16/24 @ 13:[address]) Smoking Status: Current every day smoker tobacco type: cigarettes quit status: not considering quitting alcohol intake: current alcohol intake frequency: a few times a month Alcohol type: wine substance use type: former substance user and marijuana caffeine: Yes Type: coffee what type of physical activity do you participate in: weight training frequency: daily duration: 15-30 minutes/day seatbelt use: always do you feel safe at home: Yes Audit: Pertinent Findings Pertinent Findings EKG Perinent findings: Done on 08/31/2018: Sinus Rhythm -Incomplete right bundle branch block. Stress test pertinent findings: Done on 04/21/2023: Conclusion: Normal exercise myocardial perfusion stress test at a high workload Preserved ejection fraction. Consult pertinent findings: Cardiology note-Naeem ruth NP: history of hypertension, hyperlipidemia, coronary disease status post right coronary stenting in 2013. Stress test in March 2023 was negative for ischemia at a high workload of 10.1 metabolic equivalents. Ejection fraction was noted to be preserved. Will continue to monitor and not make any medication regimen changes. Recommendation Anesthesia Recommendation Anesthesia recommendation: OPTIMIZED for anesthesia
[2024-09-12] VITALS (9 sets, daily range): BP systolic 122–146; BP diastolic 82–99; PULSE 56–79; RESP 16–75; TEMP 36.4–36.9; O2SAT 96–100; BMI 26.6
--- NOTE | 2024-09-12 09:33 | PCM.HP.BLA ---
History and Physical Date of Admission: 09/12/24 Date of Service: 08/23/24 MR#: [id number] Acct: [id number] Name: PETER TOSCANO Rep #: [id number] : 1965 Provider: Dr. Joan Bolton MD Age/Sex: 59/M Location: [facility] Status: Signed Intake Vital Signs 08/16/2512:50 Height 6 ft Weight: 203 lb BMI 27.5 BP 114/76 Blood Pressure Location Rt brachial Position Sitting Respiration 17 Pulse 92 Pulse Source Monitor Pulse Oximetry (%) 98 Oxygen Delivery Method room air Intake Visit Reasons: Review CT scan Chief Complaint: review CT scan Is patient in pain?: No Allergies tramadol Adverse Reaction (Verified 08/23/24 08:51) Other Medications ?Medication ?Instructions ?Recorded ?Confirmed ?Type ascorbic acid (vitamin C) 500 mg 500 mg PO DAILY@0800 12/29/13 08/23/24 History tablet multivitamin with folic acid 400 1 tab PO DAILY 12/29/13 08/23/24 History mcg tablet hydrocodone 5 mg-acetaminophen 300 1 tab PO Q6H PRN 05/18/17 08/23/24 History mg tablet (Vicodin) aspirin 81 mg chewable tablet 162 mg PO BID 03/17/23 08/23/24 History nitroglycerin 0.4 mg sublingual 0.4 mg sublingual Q5M PRN chest 03/17/23 08/23/24 Rx tablet (Nitrostat) pain #30 tabs cyclobenzaprine 10 mg tablet 10 mg PO HS PRN 02/16/24 08/23/24 History atorvastatin 40 mg tablet 40 mg PO Q OTHER DAY #90 tabs 06/07/24 08/23/24 Rx metoprolol tartrate 25 mg tablet See Rx Instructions .Route 06/07/24 08/23/24 Rx .COMPLEX #90 tabs PFSH Medical History Tobacco use disorder, continuous Encounter for screening for malignant neoplasm of lung COVID-19 Nicotine dependence Essential (primary) hypertension Intermittent claudication Hyperlipidemia 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 Sister Cancer Breast Cancer; Social History (Updated 08/16/24 @ 13:[address]) Smoking Status: Current every day smoker (1 ppd ) tobacco type: cigarettes quit status: not considering quitting alcohol intake: current alcohol intake frequency: a few times a month Alcohol type: wine substance use type: former substance user and marijuana caffeine: Yes Type: coffee what type of physical activity do you participate in: weight training frequency: daily duration: 15-30 minutes/day seatbelt use: always do you feel safe at home: Yes HPI HPI HPI: 59-year-old male presents to discuss CT abdomen pelvis findings. Patient's report does call bilateral inguinal hernias and umbilical hernia containing fat, no mention of a dilated saphenous vein which is present on my read and is what is causing the lump in the left proximal groin crease and disappears upon laying down. Patient does have varicose veins in his left lower extremity. Again on my previous physical exam did not feel clinically that there were inguinal hernias and my read of the CT abdomen pelvis I do not see inguinal hernias bilaterally. Patient does state that the umbilical hernia may be slightly larger than last week when he was seen. ROS General General: No weight change, appetite, fatigue, colon cancer, breast cancer or weakness HEENT HEENT: No difficulty swallowing, eye injury, eye surgery, swollen glands or hoarseness Endo Endocrine: No thyroid disease, diabetes mellitus, thyroid cancer, Hair loss, heat intolerance or cold intolerance Skin Skin: Yes rash; No changing moles Musc Musculoskeletal: Yes back problems; No arthritis, rheumatoid arthritis, gout or joint pain Cardio Cardiovascular: Yes heart stent; No murmur, pacemaker, heart disease, atrial fibrillation, high blood pressure, heart attack, palpitations, shortness of breath with exertion or chest pain Additional Details: CAD 2 stents present Psych Psychiatric: No depression, anxiety or hearing voices Resp Respiratory: No shortness of breath, No sleep apnea, Yes cough, No COPD, No asthma, Yes emphysema and No wheezing Gastro Gastrointestinal: No abdominal pain, No nausea or vomiting, No diarrhea, No constipation, No blood in stool, No acid reflux, No hemorrhoids, No ulcers, No gallbladder problem and No black,tarry stools Jakub Hematologic: No blood thinners, No blood disorders, No bleeding, No anemia and No blood clots Neuro Neurologic: No system reviewed and no additional complaints, except as documented, No as per HPI, No abnormal gait, No abnormal hearing, No abnormal movements, No abnormal speech, No behavioral changes, No burning sensations, No confusion, No convulsions, No disequilibrium, No dizziness, No localized weakness, No frequent falls, No headache(s), No lack of coordination, No loss of vision, No memory loss, No numbness, No other visual disturbances, No radicular pain, No restless legs, No sensory deficit, No syncope, No tingling, No tremor(s), No weakness and No other Exam Const General: cooperative, healthy appearing and no acute distress GI Inspection: non-distended Palpation: hernia (Umbilical hernia reducible but a centimeter in size) and nontender Assessment and Plan Assessment and Plan (1) Umbilical hernia: Status: Acute (2) Varicose vein of leg: Status: Acute Comment: left with dilated saphenous vein Plan Reviewed CT and pelvis with the patient. Discussed that I do not see any bilateral inguinal hernias on exam or on CT--even though the report does state that they are there bilaterally. Plan to do an open umbilical hernia repair with mesh. Reviewed the procedure with the patient including the risks, including but not limited to infection, bleeding, injury to the small bowel, and recurrence. All questions were answered. Also, discussed risk of strangulated bowel. Cautioned the patient that if he has N/V, ABD distention, increased umbilical pain or changes of the skin over the hernia he needs to go to the ER. Joan Bolton M.D. Pager: [phone] [facility] [address] [place] [address], [facility], [address] [place] [address] Office: [phone] Coding Level of Care Code Off vis,est,level 3 Diagnoses Umbilical hernia K42.9 Varicose vein of leg I83.90 08/26/24 1025 <Electronically signed by Joan Bolton MD> Date Joan Bolton MD
[2024-09-12] MEDS: Lactated Ringers 1,000 ML 15 ML IV (09:51)
[2024-09-12 09:57] LABS: Hematocrit 43.1 % (40-54); Hemoglobin 15.9 g/dL (13.0-16.5); Mean Corp Hgb Conc 36.9 g/dL (32-36); Mean Corpuscular Volume 90.9 fL (80-94); Mean Platelet Vol. 9.7 fl (6.2-12.0); Platelet Count 186 K/mm3 (150-450); RBC Distribution Width CV 11.9 % (11.6-14.6); RBC Distribution Width SD 39.9 fl (35.1-43.9); Red Blood Count 4.74 M/mm3 (4.6-6.2); White Blood Count 9.8 K/mm3 (4.4-11.0)
--- NOTE | 2024-09-12 10:12 | PCM.PRE.AN2 ---
ASA Classification* ASA Classification ASA Classification: 3 Assessment & Plan Anesthesia* Anesthesia Assessment Anesthesia Assessment: Discussed sedation and/or anesthesia options, risks, benefits, and alternatives with patient/parents/legal guardian/POA. Questions invited. The patient/parents/legal guardian/POA seems to understand and agrees to proceed with anesthesia plan. Reviewed the physical assessment, medical history, allergy history and patient home medications list prior to surgery/procedure/anesthetic and documented any changes. Performed airway and anesthesia risk assessments. Anesthesia Type Anesthesia Type: General History Source History Obtained from:: Patient, Chart and Significant Other Anesthesia Focused Assessment* Temperature: 98.5 F Pulse Rate: 72 Blood Pressure: 122/82 Respiratory Rate: 16 Pulse Ox: 100 Oxygen Delivery Method: Room Air Airway Assessment Mouth opens: >3 cm Mallampati Score: II Teeth Condition: Chipped/Broken Neck Range of motion (ROM): Full ROM Labs Anesthesia Preop lab: CBC WBC 9.8 K/mm3 (4.4-11.0) 09/12/24 09:45 09/12/24 RBC 4.74 M/mm3 (4.6-6.2) 09/12/24 09:45 09/12/24 Hgb 15.9 g/dL (13.0-16.5) 09/12/24 09:45 09/12/24 Hct 43.1 % (40-54) 09/12/24 09:45 09/12/24 Plt Count 186 K/mm3 (150-450) 09/12/24 09:45 09/12/24 CHEMISTRY Potassium 4.2 mmol/L (3.5-5.1) 01/10/20 08:13 01/10/20 Sodium 138 mmol/L (136-145) 01/10/20 08:13 01/10/20 Magnesium 2.0 mg/dL (1.8-2.4) 04/15/14 16:08 04/15/14 BUN 13 mg/dL (7-18) 01/10/20 08:13 01/10/20 Creatinine 1.04 mg/dL (0.70-1.30) 01/10/20 08:13 01/10/20 Glucose 104 mg/dL (74-106) 01/10/20 08:13 01/10/20 COAG PT 12.9 SECONDS (11.7-14.9) 12/30/13 04:30 12/30/13 Pre-Assessment Diagnosis/Proposed Procedure Planned Operative Procedure(s): Hernia, Open Umbilical Repair w/ Mesh Anesthesia History 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 When Was Last Pacemaker Check QUESTION #4 FULL TEXT: You/Your Family Experience fever (hyperthermia) with Anesthesia Last Oral Intake Last Oral intake: Last Oral Intake NPO since 22:30 09/12/24 09:34 Meds taken in AM with sips of No 09/12/24 09:34 water? 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 Female No 08/29/24 14:31 HX of Motion Sickness No 08/29/24 14:31 HX of N/V After Surgery No 08/29/24 14:31 Non-Smoker No 08/29/24 14:31 Duration of Surgery greater No 08/29/24 14:31 than 60 minutes Number of Risk Factors PONV Score Height & Weight Height & Weight: Anesthesia: Height & Weight Height 6 ft 09/12/24 09:34 Weight: 88.995 kg 09/12/24 09:34 Body Mass Index (BMI) 26.6 09/12/24 09:34 Respiratory Assessment Respiratory Assessment - diesel tractor operator: Respiratory Tract Infection Hx - diesel tractor operator Hx Respiratory Tract Infection No 08/29/24 14:31 STOP Sleep Apnea STOP Sleep Apnea - diesel tractor operator: STOP Sleep Apnea - diesel tractor operator Hx Hypertension Yes: on meds 08/29/24 14:31 Hx Sleep Apnea No 08/29/24 14:31 CPAP No 12/29/13 10:19 BIPAP No 12/29/13 10:19 Do you snore loudly (louder No 08/29/24 14:31 than talking or can be heard Do you often feel tired/ No 08/29/24 14:31 fatigued/ sleepy during daytime? Has anyone observed you stop No 08/29/24 14:31 breathing during sleep? STOP Results Negative 08/29/24 14:31 QUESTION #5 FULL TEXT : Do you snore loudly (louder than talking or can be heard through closed doors)? 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 Specify any problems Hx of Preganancy in last 3 N/A 08/29/24 14:31 Months Nurse Filling Out Transfusion JZOJOSÉ 08/29/24 14:31 & Questions: Date: 08/29/24 08/29/24 14:31 Time: 14:34 08/29/24 14:31 Patient unable to answer at this time (ie. 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: /Reproductive Hx- diesel tractor operator Hx Now No 08/29/24 14:31 Gestational Age (in weeks): EDC: Hx Hx Para Hx Section SAB No 08/29/24 14:31 Active Medications Active Medications: Current Medications Generic Name Dose Route Start Last Admin Trade Name Freq PRN Reason Stop Dose Admin Cefazolin Sodium 2 gm/ Sodium 110 mls @ 200 mls/hr 09/12/24 11:00 Chloride IV 09/12/24 11:32 INTRAOP ONE Lactated Ringer's 1,000 mls @ 15 mls/hr 09/12/24 10:00 07/17/25 09:51 IV 15 mls/hr .Q48H INDER Administration PFSH Medical History Hx of hypoglycemia Smoker History of stress test Tobacco use disorder, continuous Encounter for screening for malignant neoplasm of lung COVID-19 Nicotine dependence Essential (primary) hypertension Intermittent claudication Hyperlipidemia 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 Home Medications ?Medication ?Instructions ?Recorded ?Last Taken ?Type ascorbic acid (vitamin C) 500 mg 500 mg PO DAILY@0800 12/29/13 09/11/24 History tablet multivitamin with folic acid 400 1 tab PO DAILY 12/29/13 09/11/24 History mcg tablet hydrocodone 5 mg-acetaminophen 300 1 tab PO Q6H PRN pain 05/18/17 Unknown History mg tablet (Vicodin) aspirin 81 mg chewable tablet 162 mg PO BID 03/17/23 09/09/24 History nitroglycerin 0.4 mg sublingual 0.4 mg sublingual Q5M PRN chest 03/17/23 Unknown Rx tablet (Nitrostat) pain #30 tabs cyclobenzaprine 10 mg tablet 10 mg PO HS PRN pain 02/16/24 09/11/24 20:00 History atorvastatin 40 mg tablet 40 mg PO Q OTHER DAY #90 tabs 06/07/24 09/10/24 Rx metoprolol tartrate 25 mg tablet See Rx Instructions .Route 06/07/24 09/11/24 08:00 Rx .COMPLEX #90 tabs sildenafil 50 mg tablet 50 mg PO DAILY PRN erectile 08/29/24 Unknown History dysfunction Allergy/AdvReac Type Severity Reaction Status Date / Time tramadol AdvReac Other Verified 09/12/24 09:30 Family History Unknown No problems noted. Sister Cancer Breast Cancer; Surgical History Hx of colonoscopy Hx of heart artery stent History of repair of rotator cuff H/O right coronary artery stent placement (12/30/13) Social History Smoking Status: Current every day smoker tobacco type: cigarettes quit status: not considering quitting alcohol intake: current alcohol intake frequency: a few times a month Alcohol type: wine substance use type: former substance user and marijuana caffeine: Yes Type: coffee what type of physical activity do you participate in: weight training frequency: daily duration: 15-30 minutes/day seatbelt use: always do you feel safe at home: Yes Review of Systems (Anesthesia) ROS Narrative System reviewed and no additional complaints, except as documented.
[2024-09-12 10:20] LABS: Anion Gap 13 (5-15); BUN 17 mg/dL (4-19); BUN/Creat Ratio 19.2 RATIO (10-20); Calcium,Total 9.5 mg/dL (7.6-11.0); Carbon Dioxide 21.4 mmol/L (21.0-32.0); Chloride 105 mmol/L (98-108); Estimated Creatinine Clearance 94.60 ml/min (50-250); Glucose 110 mg/dL (70-99); Potassium 3.9 mmol/L (3.3-5.1)
--- NOTE | 2024-09-12 11:43 | PCM.OPRPT ---
Operative Report (Standard) Operative Information Date of Procedure: 09/12/24 Pre-Operative Diagnosis: incarcerated umbilical hernia Post-Operative Diagnosis: same Surgery/Procedure Performed: incarcerated umbilical hernia repair with mesh record center coordinator: Yes [employer] Solutions Architect: David Herman Tasks completed by therapist's assistant: Opening & closing and Retracting Type of Anesthesia: General/Supplemental RN Documented Start/Stop Times: Operation Date: 09/12/24 11:00 Case Time Into Pre-Op 09/12/24 09:15 Anesthesia Start 09/12/24 11:00 Into Room 09/12/24 11:00 Out of Pre-Op 09/12/24 11:00 Procedure Start 09/12/24 11:16 Procedure End 09/12/24 11:53 Anesthesia End 09/12/24 11:58 Out of Room 09/12/24 11:58 Into Recovery 09/12/24 12:00 Procedure Start Time: 11:16 Procedure Stop Time: 11:53 Select all DRAINS/GRAFTS/IMPLANTS that apply: Prosthetic device Prosthetic device details: Ventralex ST hernia patch 4.3 cm LOT [id number] REF [id number] Special Medications: Ancef 2 grams IV x 1 Estimated Blood Loss: 5 cc Specimen collected: No Description of surgery: Patient was brought into the room placed supine on the operating table. Correct patient, procedure, site, positioning, special, was verified prior to procedure. General anesthesia was induced. The abdomen was prepped draped in usual sterile fashion. A curvilinear incision was made below the umbilicus with a 15 blade scalpel. This was deepened with electrocautery. A hemostat was used to go around the stalk of the umbilicus and Metzenbaum scissors was used to carefully divide the hernia sac from the skin of the umbilicus. The fascia around the hernia defect was cleared and the hernia defect measured 1.5 cm x 1.[address] hernia patch 4.3 cm was selected. This was secured laterally at its tails with 1 Nurolon horizontal mattress suture. The hernia defect was closed with a [id number] 1 Nurolon. The wound was irrigated with saline. Hemostasis was assured. The skin of the umbilicus was secured to the fascia using 3-0 Vicryl suture interrupted. The incision was closed with 3-0 Vicryl subdermal interrupted sutures and the skin was closed with interrupted 4-0 Monocryl sutures. Steri-Strips and Tegaderm and OpSite were placed over the incision once sterile cotton balls were placed in the umbilicus. Patient was extubated. Patient tolerated procedure well and was taken to the postanesthesia care unit in stable condition. Surgical Findings: See operative report Complications Complications: No
--- NOTE | 2024-09-12 11:48 | DCINST_ITS ---
Discharge Instructions Diet Discharge Diet: Light diet - advance as tolerated Activity May shower in (days): 5 (Keep umbilical dressing clean dry and intact for 5 days. Okay to tape off with a Ziploc bag to shower. Or lower shower and upper sponge bath.) Lifting Restrictions: no lifting >20 lbs x 2 wks, no strenuous exercise for 4 wks Additional Activity Instructions:: - Dressing / Incision Call your doctor if your incision/area has: Continuous Slow Oozing, Sudden Increased Bleeding, Increased Pain/ Swelling, Increased Redness, Foul Smelling Discharge and Swelling at the incision site Call your doctor if you observe: Fever of 101 or Higher Remove Dressing in: 5 days (After 5 days okay to remove surgical dressing. Place cotton ball or rolled up gauze in bellybutton and retape daily for 2 more days.) Cleanse incision/area with: Do not get Incision Wet (for 5 days) Additional Dressing/Incision Instructions:: Steri-Strips will fall off in 7 to 10 days, if they do not fall off okay to remove after 10 days. Follow Up Care Please Follow Up With: Joan Bolton MD When: Call the office for a follow-up appointment 2 weeks; after 5 PM and on the weekends call [phone] with any concerns. Test Results: Test results from this visit will be discussed in further detail at your follow- up appointment, if applicable. Discharge Plan Admission Attending Provider: Joan Bolton Primary Care Provider: Roxanna Bangura Instructions Print Language: Tristanian Discharge Orders/Prescriptions Prescriptions: New oxycodone 5 mg capsule 5 mg PO Q6H PRN (Reason: pain) 3 Days Qty: 10 0RF Continued cyclobenzaprine 10 mg tablet 10 mg PO HS PRN (Reason: pain) nitroglycerin [Nitrostat] 0.4 mg tablet, sublingual 0.4 mg SUBLINGUAL Q5M PRN (Reason: chest pain) Qty: 30 3RF multivitamin with folic acid 1 TABLET tablet 1 tab PO DAILY Patient Comments: SUPPLIMENT ascorbic acid (vitamin C) 500 MG tablet 500 mg PO DAILY@0800 Patient Comments: VITAMIN aspirin 81 mg tablet,chewable 162 mg PO BID Patient Comments: [facility] sildenafil 50 mg tablet 50 mg PO DAILY PRN (Reason: erectile dysfunction) atorvastatin 40 mg tablet 40 mg PO Q OTHER DAY Qty: 90 3RF metoprolol tartrate 25 mg tablet See Rx Instructions .ROUTE .COMPLEX Qty: 90 3RF Dose Instruction: TAKE ONE-HALF (1/2) TABLET (12.5 MG) TWICE A DAY Rx Instructions: TAKE ONE-HALF (1/2) TABLET (12.5 MG) TWICE A DAY Held hydrocodone-acetaminophen [Vicodin] 5-300 mg tablet 1 tab PO Q6H PRN (Reason: pain) Hold Instructions: Do not take with Oxycodone Referrals / Follow Up: Roxanna Bangura PA [Primary Care Provider] - Disposition Disposition (needs filled in before D/C Order can be placed): Home, Self Care
--- NOTE | 2024-09-12 12:06 | PCM.POST.ANE ---
Anesthesia: Postop Eval I Current Vital Signs Temperature: 97.5 F Pulse Rate: 75 Blood Pressure: 131/92 Respiratory Rate: 75 Pulse Ox: 98 Oxygen Delivery Method: Room Air Assessment Airway patent: Yes Spontaneous unlabored respirations: Yes Mental status: Awake and Calm nausea: No Vomiting: No Anesthesia Complication: No Fluid Hydration Crystalloid volume administer (ml): 1,000 Total IV fluid infused: 1,000 Progress Note Anesthesia document: Postop Eval 1 completed: Yes
--- NOTE | 2024-09-12 16:26 | POSTOPAN2_ITS ---
Anesthesia Postop Eval I Sum Postop Eval Completion status Anesthesia document: Postop Eval 1 completed: Yes Anesthesia Postop Eval I Summary Anesthesia Postop Eval I Summary: Anesthesia Postop Eval I: Assessment Summary Airway patent Yes 09/12/24 12:07 [email or web address] Spontaneous unlabored Yes 09/12/24 12:07 [email or web address] respirations Mental status Awake,Calm 09/12/24 12:07 [email or web address] nausea No 09/12/24 12:07 [email or web address] Vomiting No 09/12/24 12:07 [email or web address] Anesthesia Postop Eval I: Fluid Summary Crystalloid volume administer 1,000 09/12/24 12:07 [email or web address] (ml) Colloids volume administered ( ml) Blood Product volume administered (ml) Total IV fluid infused 1,000 09/12/24 12:07 [email or web address] Anesthesia Postop Eval I: Summary Notes Anesthesia Complication No 09/12/24 12:07 [email or web address] Anesthesia Complication Comment: Post-operative progress note Anesthesia: Postop Eval II Evaluation Mental status: Awake and Calm Pain Level: 1 nausea: No Vomiting: No
--- NOTE | 2024-09-12 16:26 | PCM.POSTANE2 ---
Anesthesia Postop Eval I Sum Postop Eval Completion status Anesthesia document: Postop Eval 1 completed: Yes Anesthesia Postop Eval I Summary Anesthesia Postop Eval I Summary: Anesthesia Postop Eval I: Assessment Summary Airway patent Yes 09/12/24 12:07 [email or web address] Spontaneous unlabored Yes 09/12/24 12:07 [email or web address] respirations Mental status Awake,Calm 09/12/24 12:07 [email or web address] nausea No 09/12/24 12:07 [email or web address] Vomiting No 09/12/24 12:07 [email or web address] Anesthesia Postop Eval I: Fluid Summary Crystalloid volume administer 1,000 09/12/24 12:07 [email or web address] (ml) Colloids volume administered ( ml) Blood Product volume administered (ml) Total IV fluid infused 1,000 09/12/24 12:07 [email or web address] Anesthesia Postop Eval I: Summary Notes Anesthesia Complication No 09/12/24 12:07 [email or web address] Anesthesia Complication Comment: Post-operative progress note Anesthesia: Postop Eval II Evaluation Mental status: Awake and Calm Pain Level: 1 nausea: No Vomiting: No
== END 2024-09-12 13:38 | disposition home or self-care (01) ==
LOC: SDC 08:55 → AC 08:56
PROVIDERS: Anesthesiology; PCP Physician Assistant; Referring Provider Surgery; Visit Provider Surgery
PROC: (CPT 49594; principal; 2024-09-12 10:45)
DX: K42.9 Umbilical hernia without obstruction or gangrene (principal); I25.10 Atherosclerotic heart disease of native coronary artery without angina pectoris; I10 Essential (primary) hypertension; K40.20 Bilateral inguinal hernia, without obstruction or gangrene, not specified as recurrent; Z86.16 Personal history of COVID-19; R19.09 Other intra-abdominal and pelvic swelling, mass and lump; F17.210 Nicotine dependence, cigarettes, uncomplicated; E78.5 Hyperlipidemia, unspecified; I83.90 Asymptomatic varicose veins of unspecified lower extremity; Z95.5 Presence of coronary angioplasty implant and graft
CPT/HCPCS: 49594; 00830; 80048; 85027; 93005; C1781; J2405